=== PATIENT | female | born 1935 | race Caucasian/White ===

== ENCOUNTER 2019-06-23 16:30 | Outpatient (CLI) | payer MEDICARE, SELFPAY ==
--- NOTE | 2019-06-23 16:47 | XR_ITS ---
WS: [id number] XR chest 2V* [id number] REASON FOR EXAM: PNEUMONIA;LEFT RIB PAIN;ACCIDENTAL FALL FINDINGS: Small amount of right pleural effusion is noted. Fractures of the sixth and seventh, eighth There is mild compression deformities of the T7-T8 vertebra. Ribs at their angles on the left are seen. Mild amount of left pleural effusion evident. No pneumotho rax. The heart and mediastinum were normal there is arteriosclerotic changes seen. There was no definite pneumonia identified. The thoracic spine shows degenerated changes and mild compression deformities at the T7-8 level. XR/XR chest 2V* [id number] IMPRESSION: Fractured ribs 6 7 and eighth rib Mild compression changes T7-T8 vertebra. Mild pleural effusion obliterating the costophrenic angles bilaterally. Arteriosclerotic changes in the arch of the aorta.
--- NOTE | 2019-06-23 16:47 | XR_ITS ---
WS: [id number] XR ribs LT 2V* [id number] REASON FOR EXAM: LEFT RIB PAIN;ACCIDENTAL FALL FINDINGS: Fractures of the sixth, seventh, eighth ribs on their angles on the left. There was no pneumothorax is a small amount of left pleural effusion seen. XR/XR ribs LT 2V* [id number] IMPRESSION: Fractures of the sixth, seventh, eighth ribs at their angles on the left. A small amount of left pleural effusion.
== END 2019-06-23 16:31 | disposition home or self-care (01) ==
LOC: RAD 16:37
PROVIDERS: Family Provider Electrodiagnostic Medicine; Visit Provider Electrodiagnostic Medicine
DX: J18.9 Pneumonia, unspecified organism (principal); R07.81 Pleurodynia; J90 Pleural effusion, not elsewhere classified; S22.42XA Multiple fractures of ribs, left side, initial encounter for closed fracture; W19.XXXA Unspecified fall, initial encounter; I70.0 Atherosclerosis of aorta
CPT/HCPCS: 71046; 71100

== ENCOUNTER 2020-03-06 15:14 | Outpatient (CLI) | payer MEDICARE, SELFPAY ==
--- NOTE | 2020-03-06 15:49 | XR_ITS ---
WS: [id number] Exam: XR DEXA axial skeleton* [id number] Date/Time of Exam: 03/06/2020 3:54 PM Reason For Exam: OSTEOPOROSIS DEXA BONE DENSITOMETRY [employer] The L1-L4 bone mineral density measures 0.661 g/cm2. This corresponds to a T score of -4.3 and Z scor e of -1.9. Left femoral neck bone mineral density measures 0.521 g/cm2. This corresponds to T score of -3.9 and Z score of -1.3. Right femoral neck bone mineral density measures 0.566 g/cm2. This corresponds to a T score of -3.5 a nd Z score of -0.9. Mean femoral neck bone mineral density measures 0.544 g/cm2. This corresponds to a T score of -3.7 an d Z score of -1.1 XR/XR DEXA axial skeleton* [id number] IMPRESSION: Bone mineral density lies in the osteoporotic range. Refer to detailed summary .
== END 2020-03-06 15:15 | disposition home or self-care (01) ==
LOC: RADWPI 15:19
PROVIDERS: PCP Electrodiagnostic Medicine; Visit Provider Electrodiagnostic Medicine
DX: M81.0 Age-related osteoporosis without current pathological fracture (principal)
CPT/HCPCS: 77080

== ENCOUNTER 2020-03-12 10:26 | Outpatient (CLI) | payer MEDICARE, SELFPAY ==
[2020-03-12 11:11] LABS: Basophils # 0.1 10^3/uL (0.0-0.1); Eosinophils # 0.1 10^3/uL (0.0-0.8); Eosinophils % 1.3 %; Hematocrit 39.5 % (37.0-47.0); Hemoglobin 12.8 g/dL (11.5-15.3); Lymphocytes # 1.8 10^3/uL (0.8-4.8); Lymphocytes % 30.1 %; Mean Corpuscular HGB Conc 32.4 g/dL (30.0-36.0); Mean Corpuscular Hemoglobin 33.1 pg (28.0-34.0); Mean Corpuscular Volume 102.1 fL (81-99); Mean Platelet Volume 9.5 fL (7.4-10.4); Monocytes # 0.5 10^3/uL (0.2-0.9); Neutrophils # 3.58 10^3/uL (1.8-7.7); Neutrophils % 59.4 %; Nucleated Red Blood Cells % 0 %; Platelet Count 241 10^3/cmm (130-400); Red Blood Count 3.87 10^6/uL (4.1-5.3); Red Cell Distribution Width 13.4 % (12.1-15.1)
[2020-03-12 11:17] LABS: Alanine Aminotransferase 13 U/L (0-33); Albumin Level 4.3 g/dL (3.5-5.2); Alkaline Phosphatase 64 IU/L (35-105); Anion Gap 13.5 (5-19); Aspartate Amino Transferase 23 U/L (0-32); Blood Urea Nitrogen 12 mg/dL (8-23); Calcium 9.2 mg/dL (8.5-10.5); Carbon Dioxide 28 mmol/L (22-29); Chloride 100 mmol/L (98-107); Globulin 2.3 g/dL (1.3-4.6); Glucose 91 mg/dL (65-115); Osmolality Calculated 283 mOsm/kg (285-295); Potassium 4.5 mmol/L (3.5-5.1); Sodium 137 mmol/L (136-145); Total Bilirubin 0.3 mg/dL (0.15-1.2); Total Protein 6.6 g/dL (6.6-8.7)
--- NOTE | 2020-03-12 11:21 | ECG_ITS ---
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 Measurements Intervals [place] Rate: 78 P: 67 IN: 162 QRS: -29 QRSD: 83 T: 72 QT: 306 QTc: 350 Interpretive Statements SINUS RHYTHM SEPTAL MYOCARDIAL INFARCTION [40+ ms Q WAVE IN V1/V2], PROBABLY OLD No previous ECG available for comparison Electronically Signed On 03-12-2020 16:43:09 DIRECT MARKETING COORDINATOR by Colton Curiel M.D. [email or web address]
== END 2020-03-12 10:27 | disposition home or self-care (01) ==
LOC: LAB 10:31
PROVIDERS: PCP Electrodiagnostic Medicine; Visit Provider Specialist
DX: Z01.818 Encounter for other preprocedural examination (principal)
CPT/HCPCS: 36415; 80053; 85025; 93005

== ENCOUNTER 2020-06-13 11:02 | Outpatient (CLI) | payer MEDICARE, SELFPAY | END 2020-06-13 11:03 | disposition home or self-care (01) | LOC: LAB 11:04 | PROVIDERS: PCP Electrodiagnostic Medicine; Visit Provider Specialist | DX: C30.0 Malignant neoplasm of nasal cavity (principal) | CPT/HCPCS: 88304 ==

== ENCOUNTER 2020-08-10 20:41 | Emergency (ER) | payer MEDICARE, SELFPAY ==
[2020-08-10 20:54] VITALS: BP 156/68; PULSE 97; RESP 16; TEMP 37.2; O2SAT 96; BMI 20.1
--- NOTE | 2020-08-10 21:26 | XRR_ITS ---
PROCEDURE INFORMATION: Exam: XR Chest Exam date and time: 08/10/2020 9:30 PM Age: 85 years old Clinical indication: Cough and shortness of breath; Patient HX: Cough with SOB. ; Additional info: Cough/sob TECHNIQUE: Imaging protocol: XR of the chest. Views: 1 view. COMPARISON: CR XR chest 2V* [id number] 06/23/2019 4:53 PM FINDINGS: Lungs: The lungs are hyperinflated with unchanged diffuse interstitial prominence compatible with COPD with fibrosis. There is unchanged linear scarring in the right lower lobe. There is new/increased hazy density in the left lower lobe concerning for early pneumonic infiltrate. Pulmonary vascularity is within normal limits. Pleural spaces: Unremarkable. No pleural effusion. No pneumothorax. Heart/Mediastinum: Unremarkable. No cardiomegaly. Bones/joints: Old left rib fracture deformities are noted. Osteopenia and moderate to severe degenerative changes in the spine are noted. XR/XR chest 1V portable [id number] IMPRESSION: There is new/increased hazy density in the left lower lobe concerning for early pneumonic infiltrate. 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
[2020-08-10 22:01] VITALS: BP 165/85; PULSE 96; RESP 18; O2SAT 93
--- NOTE | 2020-08-10 22:13 | W.ED.SOB ---
HPI - SOB/Dyspnea General: Chief Complaint: Upper Respiratory Infection Stated Complaint: cough/sob Time Seen by Provider: 08/10/20 22:01 Source: patient Mode of arrival: ambulatory Limitations: no limitations History of Present Illness: HPI Narrative: Patient is a nice 85-year-old female who presents to ED today with a complaint of a cough and intermittent shortness of breath over the past 2 days. Patient tells me she only has shortness of breath while coughing. She has not noticed any exercise intolerance. She does not complain of chest pain. No fevers. Patient is otherwise healthy. She takes one medication for osteoporosis. She states she has received the [employer] COVID vaccination. No sick contacts. She is an everyday smoker. MD elicited complaint: shortness of breath and cough Onset (ago): day(s) Timing: intermittent Severity: moderate Exacerbating factors: other (coughing) Relieving factors: nothing Associated symptoms: Reports chest congestion; Deny abdominal pain, chest pain, fever(s), hemoptysis, lightheadedness, nausea, orthopnea, palpitations, syncope or vomiting Treatment prior to arrival: none Related Data: Home oxygen amount: none Review of Systems Const: Denies: fever(s), chills, body aches, fatigue or malaise ENMT: Denies: throat pain, odynophagia or nasal congestion Card: Denies: chest pain, palpitations, irregular heart rhythm, edema, swelling of feet/ankles, lightheadedness, syncope, pre-syncope or orthopnea Resp: Reports: dyspnea, productive cough and chest congestion; Denies: wheezing, stridor, pain on inspiration, change in phlegm color or hemoptysis GI: Denies: abdominal pain, nausea, vomiting or diarrhea Musc: Denies: neck pain or back pain Skin/Breast: Denies: rash Neuro: Denies: headache(s) PFSH ED PFSH: Family History Brother Cancer Father Diabetes Sister Diabetes Social History Smoking and tobacco status: current some day smoker Physical Exam Const: COMMON NORMALS: no acute distress, average body habitus, patient oriented x3, no limitations, healthy appearing, alert and well nourished GENERAL APPEARANCE: cooperative ORIENTATION/CONSCIOUSNESS: Yes awake, Yes oriented to person, Yes oriented to place and Yes oriented to time HENMT: COMMON NORMALS: normocephalic, atraumatic, hearing grossly normal bilaterally, external ears normal, EAC's normal, TM's normal bilaterally, Normal external nose present, Normal nasal mucous membranes and turbinates present, moist oral mucous membranes, oropharynx normal, dentition normal and gingiva normal HEAD & SCALP: normal to inspection, normocephalic and atraumatic FACE & SINUS: normal facial exam and sinuses nontender NOSE: Normal external nose present and Normal nasal mucous membranes and turbinates present EXTERNAL EAR: Yes external ears normal EXTERNAL AUDITORY CANAL: EAC's normal TYMPANIC MEMBRANE: TM's normal bilaterally Neck/C-Spine: COMMON NORMALS: full ROM, no lymphadenopathy and no meningeal signs Chest: COMMONS NORMALS: normal inspection of the chest and normal palpation of entire chest wall Resp: COMMON NORMALS: normal respiratory effort and clear to auscultation bilaterally EFFORT & INSPECTION: Yes able to speak in complete sentences AUSCULTATION: clear to auscultation bilaterally OTHER: course sounding cough Cardio: COMMON NORMALS: regular rate and regular rhythm RATE: regular rate RHYTHM: regular rhythm Extremity: COMMON NORMALS: capillary refill normal, no clubbing, cyanosis or edema, no calf tenderness and no pedal edema Neuro: COMMON NORMALS: patient oriented x3 SENSORIUM/ORIENTATION: Yes alert, Yes oriented to person, Yes oriented to place and Yes oriented to time MENINGEAL SIGNS: Yes no meningeal signs Skin: COMMON NORMALS: no rashes or lesions noted GENERAL SKIN EXAM: no rashes or lesions noted Course Vital Signs: Vital signs: Vital Signs Temperature 99.0 F 08/10/20 20:54 Pulse Rate 98 08/10/20 23:14 Respiratory Rate 19 H 08/10/20 22:33 Blood Pressure 139/75 08/10/20 23:14 Pulse Oximetry 100 08/10/20 23:14 MDM - SOB/Dyspnea MDM Narrative: Medical decision making narrative: Patient has a developing left lower lobe pneumonia. She is not tachycardic or febrile. Her white count is 10.4. She is a normal procalcitonin. COVID is negative. She will be covered with Azithromycin and Augmentin for outpatient treatment of her CAP. Strict return to ED precautions given. Otherwise she was instructed to follow-up with her primary care provider. She was given first doses of meds here prior to discharge. Lab Data: Labs: Lab Results 08/10/20 08/10/20 08/10/20 Range/Units 22:08 22:08 22:30 WBC 10.4 H (4.0-10.0) 10^3/ uL RBC 3.46 L (4.1-5.3) 10^6/u L Hgb 11.6 (11.5-15.3) g/dL Hct 34.5 L (37.0-47.0) % MCV 99.7 H (81-99) fL MCH 33.5 (28.0-34.0) pg MCHC 33.6 (30.0-36.0) g/dL RDW 13.7 (12.1-15.1) % Plt Count 242 (130-400) 10^3/c mm MPV 9.4 (7.4-10.4) fL Neut % (Auto) 71.0 % Lymph % (Auto) 17.1 % Harvey % (Auto) 9.1 % Eos % (Auto) 1.8 % Baso % (Auto) 0.7 % Neut # (Auto) 7.38 (1.8-7.7) 10^3/u L Lymph # (Auto) 1.8 (0.8-4.8) 10^3/u L Harvey # (Auto) 1.0 H (0.2-0.9) 10^3/u L Eos # (Auto) 0.2 (0.0-0.8) 10^3/u L Baso # (Auto) 0.1 (0.0-0.1) 10^3/u L Nucleated RBC % (a uto) 0 % Nucleated RBCs # 0.0 /100WBC Sodium 133 L (136-145) mmol/L Potassium 4.2 (3.5-5.1) mmol/L Chloride 96 L (98-107) mmol/L Carbon Dioxide 27 (22-29) mmol/L Anion Gap 14.2 (5-19) BUN 11 (8-23) mg/dL Creatinine 0.7 (0.5-0.9) mg/dL GFR Calculation Not Reportable Glucose 104 (65-115) mg/dL Calculated Osmolal ity 276 L (285-295) mOsm/k g Calcium 8.6 (8.5-10.5) mg/dL Total Bilirubin 0.5 (0.15-1.2) mg/dL AST 30 (0-32) U/L ALT 21 (0-33) U/L Alkaline Phosphata se 69 (35-105) IU/L Total Protein 6.6 (6.6-8.7) g/dL Albumin 4.0 (3.5-5.2) g/dL Globulin 2.6 (1.3-4.6) g/dL Procalcitonin 0.04 (0-0.5) ng/mL SARS-CoV-2 Ag (Rap id) Negative (Negative) Imaging Data^: CXR: Radiologist's impression: [id number] [address] XRay Report Signed Patient: Arlin Carrillo #: [id number] : 6At#:[id number] Age/Sex: 85 / FADM Date: 08/10/20 Loc: ERRoom/Bed: Attending Dr: Ordering Provider/Ordering MD: Ambika Edwards Date of Service: 08/10/20 Procedure(s): XR chest 1V portable [id number] Accession Number(s): [id number] Report Number: [id number] PROCEDURE INFORMATION: Exam: XR Chest Exam date and time: 08/10/2020 9:30 PM Age: 85 years old Clinical indication: Cough and shortness of breath; Patient HX: Cough with SOB. ; Additional info: Cough/sob TECHNIQUE: Imaging protocol: XR of the chest. Views: 1 view. COMPARISON: CR XR chest 2V* [id number] 06/23/2019 4:53 PM FINDINGS: Lungs: The lungs are hyperinflated with unchanged diffuse interstitial prominence compatible with COPD with fibrosis. There is unchanged linear scarring in the right lower lobe. There is new/increased hazy density in the left lower lobe concerning for early pneumonic infiltrate. Pulmonary vascularity is within normal limits. Pleural spaces: Unremarkable. No pleural effusion. No pneumothorax. Heart/Mediastinum: Unremarkable. No cardiomegaly. Bones/joints: Old left rib fracture deformities are noted. Osteopenia and moderate to severe degenerative changes in the spine are noted. XR/XR chest 1V portable [id number] IMPRESSION: There is new/increased hazy density in the left lower lobe concerning for early pneumonic infiltrate. 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 Dictated By:Ashley Chicas Signed By:Katina Chicas Date/Time:08/10/202199 DD/ 57 Discharge Plan Discharge Patient Disposition: Home Clinical Impression: Left lower lobe pneumonia Qualifiers: Pneumonia type: due to unspecified organism Qualified Code(s): J18.9 - Pneumonia, unspecified organism Condition: Stable Prescriptions: New Augmentin 875-125 mg tablet 1 tab PO Q12H 7 Days Qty: 14 RF: 0 azithromycin 500 mg tablet See Rx Instructions PO .COMPLEX Qty: 3 RF: 0 No Action cholecalciferol (vitamin D3) 1,250 mcg (50,000 unit) capsule PO RF: 0 alendronate 70 mg tablet PO RF: 0 Discharge Orders: Discharge ED (Routine); Ordered 08/10/20 Ordered By: Ambika Edwards Referrals: Alejandro Roman DO [Primary Care Provider] - Patient Instructions: Pneumonia (ED) Activity Restrictions/Additional Instructions: Please fill your antibiotics and start taking immediately. Return to the emergency department for worsening shortness of breath, cough, difficulty breathing, fevers, inability to hold down your medications, or any other concerns you may have. I hope you begin to feel better soon. Coding Level of Care Code ED Snow Plow Operator for Brooke Fwtereza Exam Comprehensive
[2020-08-10 22:14] LABS: Basophils # 0.1 10^3/uL (0.0-0.1); Basophils % 0.7 %; Eosinophils # 0.2 10^3/uL (0.0-0.8); Eosinophils % 1.8 %; Hematocrit 34.5 % (37.0-47.0); Hemoglobin 11.6 g/dL (11.5-15.3); Lymphocytes # 1.8 10^3/uL (0.8-4.8); Lymphocytes % 17.1 %; Mean Corpuscular HGB Conc 33.6 g/dL (30.0-36.0); Mean Corpuscular Hemoglobin 33.5 pg (28.0-34.0); Mean Corpuscular Volume 99.7 fL (81-99); Mean Platelet Volume 9.4 fL (7.4-10.4); Monocytes % 9.1 %; Neutrophils # 7.38 10^3/uL (1.8-7.7); Nucleated Red Blood Cells % 0 %; Platelet Count 242 10^3/cmm (130-400); Red Blood Count 3.46 10^6/uL (4.1-5.3); Red Cell Distribution Width 13.7 % (12.1-15.1); White Blood Count 10.4 10^3/uL (4.0-10.0)
[2020-08-10 22:33] VITALS: BP 146/71; PULSE 87; RESP 19; O2SAT 94
[2020-08-10 22:39] LABS: Procalcitonin 0.04 ng/mL (0-0.5)
[2020-08-10 22:50] LABS: Alanine Aminotransferase 21 U/L (0-33); Alkaline Phosphatase 69 IU/L (35-105); Anion Gap 14.2 (5-19); Aspartate Amino Transferase 30 U/L (0-32); Blood Urea Nitrogen 11 mg/dL (8-23); Calcium 8.6 mg/dL (8.5-10.5); Carbon Dioxide 27 mmol/L (22-29); Chloride 96 mmol/L (98-107); Creatinine Clr Calc Pharmacy 41.3343; Globulin 2.6 g/dL (1.3-4.6); Glucose 104 mg/dL (65-115); Osmolality Calculated 276 mOsm/kg (285-295); Potassium 4.2 mmol/L (3.5-5.1); Sodium 133 mmol/L (136-145); Total Bilirubin 0.5 mg/dL (0.15-1.2); Total Protein 6.6 g/dL (6.6-8.7)
[2020-08-10 22:55] LABS: SARS Covid-2 Antigen Negative (Negative)
[2020-08-10] MEDS: amoxicillin-clav 875-125 mg Tablet 1 TAB PO (23:12)
[2020-08-10] MEDS: azithromycin 250 mg Tablet 500 MG PO (23:12)
[2020-08-10 23:14] VITALS: BP 139/75; PULSE 98; O2SAT 100
== END 2020-08-10 23:16 | disposition home or self-care (01) ==
PROVIDERS: Emergency Provider Physician Assistant; PCP Electrodiagnostic Medicine
DX: J18.9 Pneumonia, unspecified organism (principal); F17.210 Nicotine dependence, cigarettes, uncomplicated
CPT/HCPCS: 71045; 80053; 84145; 85025; 87426; 99283; Q0144

== ENCOUNTER 2023-06-29 10:51 | Outpatient (CLI) | payer MEDICARE, SELFPAY ==
--- NOTE | 2023-06-29 10:55 | XR_ITS ---
WS: [id number] SCREENING DEXA SCAN [employer] CLINICAL INFORMATION: OSTEOPOROSIS COMPARISON: 2019 FINDINGS: The L1-L4 bone mineral density measures 0.685 g/cm2. This corresponds to a T score score of -4.1 and Z score of -1.7. Left femoral neck bone mineral density measures 0.556 g/cm2. This corresponds to a T score of -3.6 an d Z score of -0.8. Right femoral neck bone mineral density measures 0.518 g/cm2. This corresponds to a T score -3.9of an d Z score of -1.1. Mean femoral neck bone mineral density measures 0.537 g/cm2. This corresponds to a T score of -3.7 an d Z score of -1.0. IMPRESSION: Osteoporosis lumbar spine. Osteoporosis femoral necks. Patient's FRAX calculated 10 year probability for major osteoporotic fracture is 67.1% and osteoporot ic hip fracture is 62.3%. Bone mineral density lumbar spine increased 3.6% Bone mineral density femoral necks decreased -1.3%
== END 2023-06-29 10:52 | disposition home or self-care (01) ==
LOC: RAD 10:52
PROVIDERS: PCP Electrodiagnostic Medicine; Visit Provider Electrodiagnostic Medicine
DX: Z13.820 Encounter for screening for osteoporosis (principal); M81.0 Age-related osteoporosis without current pathological fracture
CPT/HCPCS: 77080

== ENCOUNTER 2023-09-26 10:55 | Emergency (ER) | payer MEDICARE, SELFPAY ==
[2023-09-26 11:54] VITALS: BP 132/68; PULSE 68; RESP 16; TEMP 37.1; O2SAT 96
--- NOTE | 2023-09-26 12:37 | XRR_ITS ---
PROCEDURE INFORMATION: Exam: XR Lumbosacral Spine Exam date and time: 09/26/2023 12:56 PM Age: 88 years old Clinical indication: Lumbago; Patient HX: Bilateral hip/lower back pain post fall TECHNIQUE: Imaging protocol: Radiologic exam of the lumbosacral spine. Views: 2 or 3 views. COMPARISON: CR XR hip BI 2V wo/[place] [id number] 09/26/2023 12:56 PM FINDINGS: Bones/joints: Diffuse moderate to severe degenerative changes. Grade 1 degenerative anterolisthesis of L4 on L5. No acute fracture. Mild chronic appearing anterior wedging T12. Soft tissues: Unremarkable. XR/XR lumbar spine 2-3V* [id number] IMPRESSION: Chronic findings as above. No acute bony abnormality.
--- NOTE | 2023-09-26 12:37 | XRR_ITS ---
PROCEDURE INFORMATION: Exam: XR Bilateral Hips Exam date and time: 09/26/2023 12:56 PM Age: 88 years old Clinical indication: Hip pain; Patient HX: Bilateral hip/lower back pain post fall TECHNIQUE: Imaging protocol: Radiologic exam of the bilateral hips. Views: 2 views of hips with pelvis when performed. COMPARISON: CR (PELVIS, ) 09/26/2023 12:56 PM FINDINGS: Bones/joints: Symmetric mother 2 severe degenerative changes bilateral hips and sacroiliac joints. No acute fracture or dislocation. There is calcific tendinopathy bilateral greater trochanters. No evidence of avascular necrosis or collapse either femur. Soft tissues: Unremarkable. XR/XR hip BI 2V wo/w pel [id number] IMPRESSION: No acute abnormality.
--- NOTE | 2023-09-26 12:41 | W.ED.FALL ---
HPI - Fall General: Chief Complaint: Fall Stated Complaint: fell out of bed, back pain Time Seen by Provider: 09/26/23 12:34 History of Present Illness: Patient comes to the ER for low back pain and bilateral hip pain. Patient says this has been going on for about 2 days. Patient had a bad dream and fell out of bed. Patient does have chronic back pain but she said this is worse than normal. She said the pain is worse with movement. Patient states her family doctors had x-ray of her lumbar spine about a month ago and says she has significant arthritis. Review of Systems General: Reports: 10 or more systems reviewed and unremarkable except in HPI and below PFSH ED PFSH: Family History Brother Cancer Father Diabetes Sister Diabetes Social History Smoking and tobacco/nicotine status: current some day tobacco/nicotine user Physical Exam Const: COMMON NORMALS: no acute distress, average body habitus, patient oriented x3, no limitations, healthy appearing, alert and well nourished HENMT: COMMON NORMALS: normocephalic, atraumatic, hearing grossly normal bilaterally, external ears normal, Normal external nose present and moist oral mucous membranes HEAD & SCALP: normocephalic and atraumatic NOSE: Normal external nose present EXTERNAL EAR: Yes external ears normal Eye: COMMON NORMALS: Equal, round and reactive pupils present, EOMs intact bilaterally and conjunctivae normal CONJUNCTIVA: Yes conjunctivae normal PUPIL: Yes Equal, round and reactive pupils present Neck/C-Spine: COMMON NORMALS: full ROM, no lymphadenopathy, supple, no meningeal signs and no JVD Chest: COMMONS NORMALS: normal inspection of the chest and normal palpation of entire chest wall Resp: COMMON NORMALS: normal respiratory effort, No retractions, No use of accessory muscles and clear to auscultation bilaterally AUSCULTATION: clear to auscultation bilaterally Cardio: COMMON NORMALS: no JVD, regular rate, regular rhythm, S1 normal heart sound present, S2 normal heart sound present, No gallops present (Cardio), No clicks present (Cardio) and No murmurs present (Cardio) RATE: regular rate RHYTHM: regular rhythm HEART SOUNDS: S1 normal heart sound present and S2 normal heart sound present GI: COMMON NORMALS: Normal to inspection, nondistended, normoactive bowel sounds present, Soft to palpation, non-tender, No hepatosplenomegaly present and no masses PALPATION: Yes Soft to palpation and Yes No hepatosplenomegaly present Back/Pelvis: OTHER: Mild tenderness to palpation over lumbar paraspinal musculature. No overt tenderness over spinal processes, crepitus, deformity, mild tenderness to palpation over bilateral hip area. Neuro: COMMON NORMALS: patient oriented x3 SENSORIUM/ORIENTATION: Yes alert MENINGEAL SIGNS: Yes no meningeal signs Course Vital Signs: Vital signs: Vital Signs Temperature 98.7 F 09/26/23 11:54 Pulse Rate 68 09/26/23 11:54 Respiratory Rate 16 09/26/23 11:54 Blood Pressure 132/68 09/26/23 11:54 Pulse Oximetry 96 09/26/23 11:54 MDM - Fall Medical Decision Making Patient fell down and is having worsening low back and hip pain. Hip pelvis and lumbar spine x-rays were obtained which showed no acute findings. Patient be discharged on tramadol and instructed to follow-up with her PCP within next 7 days. Differential Diagnosis Unlikely syncope, dislocation of shoulder region, fracture of wrist, compression fracture, concussion with loss of consciousness or concussion without loss of consciousness Medical Records I reviewed the patient's medical records. Lab Data I reviewed the patient's lab results. Radiology Impressions Hip/Pelvis X-Ray 09/26/23 12:37 IMPRESSION: No acute abnormality. Lumbar Spine X-Ray 09/26/23 12:37 IMPRESSION: Chronic findings as above. No acute bony abnormality. No radiology studies performed this visit Discharge Plan Discharge Patient Disposition: Home Clinical Impression: Fall, Acute lumbar back pain Condition: Stable Prescriptions: New tramadol 50 mg tablet 50 mg PO Q8H PRN (Reason: pain) Qty: 14 0RF No Action cholecalciferol (vitamin D3) 1,250 mcg (50,000 unit) capsule PO alendronate 70 mg tablet PO azithromycin 500 mg tablet See Rx Instructions PO .COMPLEX Qty: 3 0RF Rx Instructions: take 500 mg today (day 1), then 250 mg for 4 days (days 2-5) Discharge Orders: Discharge ED (Routine); Ordered 09/26/23 Ordered By: Lester Hood Referrals: Alejandro Roman DO [Primary Care Provider] - 1 week Patient Instructions: Pain Management Activity Restrictions/Additional Instructions: Please take your pain medicine as prescribed as needed. Please follow-up with your family practice physician within next 7 days for further evaluation and treatment. Your x-rays of your hips, pelvis, and low back showed no acute abnormalities. Coding Level of Care Code ED Service Station Cashier for Brooke Patino
[2023-09-26 14:41] VITALS: BP 128/72; PULSE 64; RESP 16; TEMP 37.1; O2SAT 98
== END 2023-09-26 14:42 | disposition home or self-care (01) ==
PROVIDERS: Emergency Provider Emergency Medicine; PCP Electrodiagnostic Medicine
DX: M54.50 Low back pain, unspecified (principal); Z72.0 Tobacco use
CPT/HCPCS: 72100; 73521; 99283

== ENCOUNTER 2024-07-02 13:06 | Emergency (ER) | payer MEDICARE, SELFPAY ==
[2024-07-02 13:08] VITALS: BP 161/72; PULSE 78; RESP 18; TEMP 36.6; O2SAT 96
--- NOTE | 2024-07-02 13:16 | XRR_ITS ---
PROCEDURE INFORMATION: Exam: XR Right Hip Exam date and time: 07/02/2024 1:37 PM Age: 89 years old Clinical indication: Hip pain; Right hip/pelvic pain post fall TECHNIQUE: Imaging protocol: Radiologic exam of the right hip. Views: 1 view hip with pelvis when performed. COMPARISON: CR XR hip BI 2V wo/w pel [id number] 09/26/2023 12:56 PM FINDINGS: Bones/joints: Minimally displaced fracture right superior pubic ramus with possible nondisplaced fracture right inferior pubic ramus. Bilateral hip DJD. Soft tissues: Unremarkable. XR/XR hip RT 2-3V wo/w pel* [id number] IMPRESSION: Minimally displaced fracture right superior pubic ramus with possible nondisplaced fracture right inferior pubic ramus.
--- NOTE | 2024-07-02 13:23 | ED_ITS ---
Documented by User: Francia Frye MD 07/02/24 15:36 HPI - Fall 2 General: Chief Complaint: Fall Stated Complaint: fell, pain in rt leg Time Seen by Provider: 07/02/24 13:12 History of Present Illness: 89-year-old female who presents emergenc y room after having a fall and having some right hip pain. She has some shortening but no rotation. She says she has balance issues and just lost her balance and fell. No syncope. No altered mental status. No fevers. No chest pain. No abdominal pain. No other injuries. No head injury. She is not on any anticoagulation. Related Data Home Medications ?Medication ?Instructions ?Recorded ?Confirmed acetaminophen 325 mg capsule 650 mg PO QID PRN Fever O r Pain 11/09/23 07/02/24 ibuprofen 200 mg tablet (Advil) 400 mg PO Q6H PRN Feve r Or Pain 07/02/24 07/02/24 Previous Rx's ?Medication ?Instructions ?Recorded DME: Walker #1 ea 07/02/24 hydrocodone 5 mg-acetaminophen 325 1 tab PO Q8H PRN pa in #20 tabs 07/02/24 mg tablet polyethylene glycol 3350 17 17 g PO DAILY #510 grams 0 07/02/24 gram/dose oral powder (Miralax) Allergies Allergy/AdvReac Type Severity Reaction Status Date / Time No Known Allergies Allergy Verified 07/02/24 13:08 Review of Systems 2 Narrative: Constitutional symptoms: Negative except as documented in HPI. Skin symptoms: Negative except as documented in HPI. Eye symptoms: Negative except as documented in HPI. ENMT symptoms: Negative except as documented in HPI. Respiratory symptoms: Negative except as documented in HPI. Cardiovascular symptoms: Negative except as documented in HPI. Gastrointestinal symptoms: Negative except as documented in HPI. Genitourinary symptoms: Negative except as documented in HPI. Musculoskeletal symptoms: Negative except as documented in HPI. Neurologic symptoms: Negative except as documented in HPI. Psychiatric symptoms: Negative except as documented in HPI. Endocrine symptoms: Negative except as documented in HPI. PFSH ED 2 PFSH: Family History (Updated 11/09/23 @ 13:33 by Natalia Ho LPN) Brother No problems noted. Father Diabetes Heart disease Sister Diabetes Heart disease Mother Hypertension Denies family history of Colon cancer Ovarian cancer Prostate cancer Breast cancer Uterine cancer Thyroid disease Stroke Physical Exam 2 Narrative: EXAM NARRATIVE: General: Alert, no acute distress. Skin: Warm, dry. Head: Normocephalic, atraumatic. Neck: Supple, trachea midline. Eye: Extraocular movements are intact. Ears, nose, mouth and throat: mucosa moist. Cardiovascular: Regular, Normal peripheral perfusion. Respiratory: Lungs are clear to auscultation, respirations are non-labored, breath sounds are equal, Symmetrical chest wall expansion. Gastrointestinal: Soft, Nontender, Non distended Musculoskeletal: Some shortening without rotation of the right leg. Neurovascularly intact. Pain in the groin and hip area with any movement of the leg. Neurological: Alert and oriented, No focal neurological deficit observed. Psychiatric: Cooperative, appropriate mood & affect. Course 2 Vital Signs: Vital signs: Vital Signs Temperature 98 F 07/02/24 13:08 Pulse Rate 71 07/02/24 16:02 Respiratory Rate 16 07/02/24 13:51 Blood Pressure 144/71 07/02/24 16:02 Pulse Oximetry 95 07/02/24 16:02 Oxygen Delivery Me thod Room Air 07/02/24 15:14 MDM - Fall Medical Decision Making Medical decision making: Differential diagnosis for patient with fall and hip pain with deformity including but not limited to and based on the above HPI, review of systems and physical exam: Hip fracture, femur fracture, pelvic fractures including pubic rami and acetabular fractures, hip strain, hip contusion. - Workup: - Hip films ordered to evaluate above. - also presurgical work up done. EKG, Chest xray and lab work X-ray of the right hip and pelvis: Superior ramus fracture with possible inferior pubic ramus fracture. A CT was ordered to further evaluate. Chest x-ray: No acute process. No infiltrate. No pneumothorax. This was reviewed and interpreted by myself the emergency room physician. I also reviewed the radiology report. Lab Review: Laboratory results were reviewed and interpreted by myself the emergency room physician. Lab work is unremarkable. No leukocytosis. No anemia. No renal failure. CT of the pelvis without contrast: Right-sided inferior and superior pubic ramus fractures. Nondisplaced right sacral ala fractures. This was reviewed and interpreted by myself the emergency room physician. I also reviewed the radiology report. Consultation: I spoke with Dr. Rubio who is on-call for orthopedics. He recommends nonweightbearing as tolerated. This is nonsurgical. Patient can see him in clinic. I reviewed the patient's medical record. Reexamination: Patient remained stable. No increased work of breathing. No altered mental status. No focal motor deficits. Patient says she did bear some weight on the hip after she injured it. I discussed at length with the patient and with her son options at this time. Ultimately they feel like going for rehab at this point is not preferable. They want to try to go home. I have ordered a walker and a bedside commode for them. Discussed following with Ortho and following with her primary care provider. Primary provider may be able to provide them with physical therapy etc. I discussed pain control. Also discussed making sure she takes MiraLAX any other stool softener she needs to keep her bowels moving if she is on any pain meds. Assessment and plan: Pelvic fracture ?Ida in the emergency room. DME for walker and bedside commode. - Discharged home - Discussed plan with patient. Answered any questions. - Evaluation and treatment of this problem were appropriate in the emergency setting. Lab Data 07/02/24 13:57 07/02/24 13:57 Radiology Impressions Hip/Pelvis X-Ray 07/02/24 13:16 IMPRESSION: Minimally displaced fracture right superior pubic ramus with possible nondisplaced fracture right inferior pubic ramus. Chest X-Ray 07/02/24 13:24 IMPRESSION: Hazy left basilar infiltrate. Pelvis CT 07/02/24 13:58 IMPRESSION: 1. Right-sided inferior and superior pubic rami fractures. 2. Nondisplaced right sacral ala fractures. 3. This combination of fractures constitutes a Malgaigne fracture. Laboratory Results WBC 6.24 10^3/uL (3.29-11.43) 07/02/24 13:57 RBC 3.79 10^6/uL (3.85-5.65) L 07/02/24 13:57 Hgb 12.50 g/dL (11.27-16.99) 07/02/24 13:57 Hct 37.7 % (36-47) 07/02/24 13:57 MCV 99.5 fl (85-98) H 07/02/24 13:57 MCH 33.0 pg (27-33) 07/02/24 13:57 MCHC 33.2 g/dL (30-55) 07/02/24 13:57 RDW 13.3 % (12.1-15.1) 07/02/24 13:57 Plt Count 213 10^3/cmm (157-399) 07/02/24 13:57 MPV 8.9 fL (7.4-10.4) 07/02/24 13:57 Neut % (Auto) 76.9 % 07/02/24 13:57 Lymph % (Auto) 15.7 % 07/02/24 13:57 [place]haw % (Auto) 5.9 % 07/02/24 13:57 Eos % (Auto) 0.2 % 07/02/24 13:57 Baso % (Auto) 0.8 % 07/02/24 13:57 Neut # (Auto) 4.80 10^3/uL (1.8-7.7) 07/02/24 13:57 Lymph # (Auto) 1.0 10^3/uL (0.8-4.8) 07/02/24 13:57 [place] # (Auto) 0.4 10^3/uL (0.2-0.9) 07/02/24 13:57 Eos # (Auto) 0.0 10^3/uL (0.0-0.8) 07/02/24 13:57 Baso # (Auto) 0.1 10^3/uL (0.0-0.1) 07/02/24 13:57 Nucleated RBC % (auto) 0 % 07/02/24 13:57 Nucleated RBCs # 0.0 /100WBC 07/02/24 13:57 PT 13.70 SECONDS (12.1-14.9) 07/02/24 13:57 INR 0.98 (0.8-1.2) 07/02/24 13:57 Sodium 134 mmol/L (136-145) L 07/02/24 13:57 Potassium 4.4 mmol/L (3.5-5.1) 07/02/24 13:57 Chloride 100 mmol/L (98-107) 07/02/24 13:57 Carbon Dioxide 26 mmol/L (22-29) 07/02/24 13:57 Anion Gap 12.4 (5-19) 07/02/24 13:57 BUN 14 mg/dL (8-23) 07/02/24 13:57 Creatinine 0.6 mg/dL (0.5-0.9) 07/02/24 13:57 GFR Calculation Not Reportable 07/02/24 13:57 Glucose 90 mg/dL (65-115) 07/02/24 13:57 Calculated Osmolality 278 mOsm/kg (285-295) L 07/02/24 13:57 Calcium 9.1 mg/dL (8.5-10.5) 07/02/24 13:57 Total Bilirubin 0.4 mg/dL (0.15-1.2) 07/02/24 13:57 AST 28 U/L (0-32) 07/02/24 13:57 ALT 15 U/L (0-33) 07/02/24 13:57 Alkaline Phosphatase 63 U/L (35-105) 07/02/24 13:57 Total Protein 6.6 g/dL (6.6-8.7) 07/02/24 13:57 Albumin 3.9 g/dL (3.5-5.2) 07/02/24 13:57 Globulin 2.7 g/dL (1.3-4.6) 07/02/24 13:57 All radiology interpretation(s) finalized by discharge Discharge Plan Discharge Patient Disposition: Home Clinical Impression: Closed Malgaigne fracture of pelvis, Fall Condition: Stable Prescriptions: New hydrocodone-acetaminophen 5-325 mg tablet 1 tab PO Q8H PRN (Reason: pain) Qty: 20 0RF Rx Instructions: Take 1/2 to 1 tab every 8 hours as needed for pain polyethylene glycol 3350 [Miralax] 17 gram/dose powder 17 g PO DAILY Qty: 510 0RF Rx Instructions: Take 1 scoop daily while taking pain medications. (DME) DME: Walker Unit See Rx Instructions .Route Qty: 1 0RF Rx Instructions: As directed No Action acetaminophen 325 mg capsule 650 mg PO QID PRN (Reason: Fever Or Pain) ibuprofen [Advil] 200 mg Tablet 400 mg PO Q6H PRN (Reason: Fever Or Pain) Discharge Orders: Discharge ED (Routine); Ordered 07/02/24 Ordered By: Francia Frye Other Ambulatory Orders: DME: [facility] (Order) Location: None Selected Ordered By: Francia Frye Referrals: Amari Rubio DO [Physician] - (Please call for a follow-up ointment with Dr. Rubio with orthopedics.) Alejandro Roman DO [Primary Care Provider] - Discharge Activity: Limit activity as instructed Patient Instructions: Opioid Safety, Pain Management Activity Restrictions/Additional Instructions: You are able to weight-bear as tolerated. You can touchdown or bear weight fully if pain allows. You may need to use a walker or wheelchair initially. Please contact your PCP as soon as possible for possible home health, physical therapy or other aids. Thank you for choosing [facility] for your healthcare needs today. Please realize this is an emergency room and that we are providing you with a medical screening exam and this may not be complete and all inclusive of all the testing and or work up that you may need to determine your ailment or severity of your illness. You have been screened and evaluated and felt safe for discharge. Health conditions do change or evolve sometimes and as such it is important that you follow up with your Primary Doctor to be re checked, 3-5 days is a general good time frame for follow up. You are always welcome to return to the ED for re assessment if your symptoms are worsening or you have new concerns Print Language: Greenlandic Coding Level of Care Code ED Inspector Tester Sorter for Chg Fwd Documented by User: NORMA Vega 07/03/24 00:50 HPI - Fall 2 General: Chief Complaint: Fall Stated Complaint: fell, pain in rt leg Time Seen by Provider: 07/02/24 13:12 History of Present Illness: Patient is a 89-year-old female that presents to the emergency department with right hip pain. Patient reports that she had a slip and fall while watering her dogs. She states she fell onto her right hip. She denies striking her head or loss of consciousness. She has some low back pain but primarily pain is located to the right groin. She does have some shortening of the right lower extremity but no rotation. Patient is not anticoagulated. She reports that she has no chronic medical conditions for which she is treated. She did have a prior skin lesion removed from her face. She reports that she had some heart trouble years ago but nothing ever came of it. Related Data Home Medications ?Medication ?Instructions ?Recorded ?Confirmed acetaminophen 325 mg capsule 650 mg PO QID PRN Fever O r Pain 11/09/23 07/02/24 ibuprofen 200 mg tablet (Advil) 400 mg PO Q6H PRN Feve r Or Pain 07/02/24 07/02/24 Previous Rx's ?Medication ?Instructions ?Recorded DME: Walker #1 ea 07/02/24 hydrocodone 5 mg-acetaminophen 325 1 tab PO Q8H PRN pa in #20 tabs 07/02/24 mg tablet polyethylene glycol 3350 17 17 g PO DAILY #510 grams 0 07/02/24 gram/dose oral powder (Miralax) Allergies Allergy/AdvReac Type Severity Reaction Status Date / Time No Known Allergies Allergy Verified 07/02/24 13:08 Review of Systems 2 General: Reports: 10 or more systems reviewed and unremarkable except in HPI and below PFSH ED 2 PFSH: Family History (Updated 11/09/23 @ 13:33 by Natalia Ho LPN) Brother No problems noted. Father Diabetes Heart disease Sister Diabetes Heart disease Mother Hypertension Denies family history of Colon cancer Ovarian cancer Prostate cancer Breast cancer Uterine cancer Thyroid disease Stroke Physical Exam 2 Const: COMMON NORMALS: no acute distress, patient oriented x3 and alert G ENERAL APPEARANCE: cooperative ORIENTATION/CONSCIOUSNESS: Yes awake, Yes oriented to person, Yes oriented to place and Yes oriented to time Neck/C-Spine: COMMON NORMALS: full ROM GENERAL: Yes normal visual inspection CERVICAL SPINE: Yes cervical ROM normal, No Cervical spine tenderness, No step off deformity and No Paracervical muscle tenderness Lymph: LYMPHATIC: no lymphadenopathy noted Chest: COMMONS NORMALS: normal inspection of the chest Breast/axilla inspection: Yes no chest deformity, asymmetry, normal contours, no nodules, masses, tenderness Resp: COMMON NORMALS: normal respiratory effort, No retractions, No use of accessory muscles and clear to auscultation bilaterally EFFORT & INSPECTION: Yes able to speak in complete sentences and Yes symmetric chest movement A USCULTATION: clear to auscultation bilaterally Cardio: COMMON NORMALS: regular rate, regular rhythm and Peripheral pulses 2+ throughout RATE: regular rate RHYTHM: regular rhythm PERIPHERAL PULSES: Peripheral pulses 2+ throughout GI: COMMON NORMALS: Normal to inspection, nondistended, normoactive bowel sounds present, Soft to palpation, non-tender and No hepatosplenomegaly present INSPECTION: Yes normal to inspection AUSCULTATION: Yes normoactive bowel sounds PALPATION: Yes Soft to palpation and Yes No hepatosplenomegaly present RECTAL EXAM: deferred Back/Pelvis: OTHER: Tenderness to palpation along the lumbar spine. Patient reports this is chronic in nature. She reports she has pain in the posterior aspect of the legs in the morning but this improves as the day wears on. Extremity: NARRATIVE EXTREMITY EXAM: Right lower extremity: Patient is still closed but she has shortening of the right lower extremity. No rotation. She is tender to palpation in the groin. No tenderness over the greater trochanter. She has tenderness in her lumbar spine but not specifically her sacrum or pelvis. Patient has no range of motion of the right lower extremity secondary to pain. She is able to dorsiflex plantarflex her foot Able dorsiflex great toe Sensation intact to light touch at medial, lateral, dorsal, plantar surface of the foot and first webspace DP pulses palpable and cap refills less than 3 seconds Neuro: COMMON NORMALS: patient oriented x3 SENSORIUM/ORIENTATION: Yes alert, Yes oriented to person, Yes oriented to place and Yes oriented to time CRANIAL NERVES: Yes CN normal except as noted Psych: COMMON NORMALS: mental status grossly normal, Normal thought process present, cooperative, activity/motor behavior normal, denies homicidal ideation and denies suicidal ideation THOUGHT PROCESS: Normal thought process present Skin: COMMON NORMALS: no rashes or lesions noted, no wounds and turgor normal GENERAL SKIN EXAM: no rashes or lesions noted and turgor normal Course 2 Vital Signs: Vital signs: Vital Signs Temperature 98 F 07/02/24 13:08 Pulse Rate 71 07/02/24 16:02 Respiratory Rate 16 07/02/24 13:51 Blood Pressure 144/71 07/02/24 16:02 Pulse Oximetry 95 07/02/24 16:02 Oxygen Delivery Me thod Room Air 07/02/24 15:14 MDM - Fall Lab Data 07/02/24 13:57 07/02/24 13:57 Radiology Impressions Hip/Pelvis X-Ray 07/02/24 13:16 IMPRESSION: Minimally displaced fracture right superior pubic ramus with possible nondisplaced fracture right inferior pubic ramus. Chest X-Ray 07/02/24 13:24 IMPRESSION: Hazy left basilar infiltrate. Pelvis CT 07/02/24 13:58 IMPRESSION: 1. Right-sided inferior and superior pubic rami fractures. 2. Nondisplaced right sacral ala fractures. 3. This combination of fractures constitutes a Malgaigne fracture. Laboratory Results WBC 6.24 10^3/uL (3.29-11.43) 07/02/24 13:57 RBC 3.79 10^6/uL (3.85-5.65) L 07/02/24 13:57 Hgb 12.50 g/dL (11.27-16.99) 07/02/24 13:57 Hct 37.7 % (36-47) 07/02/24 13:57 MCV 99.5 fl (85-98) H 07/02/24 13:57 MCH 33.0 pg (27-33) 07/02/24 13:57 MCHC 33.2 g/dL (30-55) 07/02/24 13:57 RDW 13.3 % (12.1-15.1) 07/02/24 13:57 Plt Count 213 10^3/cmm (157-399) 07/02/24 13:57 MPV 8.9 fL (7.4-10.4) 07/02/24 13:57 Neut % (Auto) 76.9 % 07/02/24 13:57 Lymph % (Auto) 15.7 % 07/02/24 13:57 Kershaw % (Auto) 5.9 % 07/02/24 13:57 Eos % (Auto) 0.2 % 07/02/24 13:57 Baso % (Auto) 0.8 % 07/02/24 13:57 Neut # (Auto) 4.80 10^3/uL (1.8-7.7) 07/02/24 13:57 Lymph # (Auto) 1.0 10^3/uL (0.8-4.8) 07/02/24 13:57 [place]haw # (Auto) 0.4 10^3/uL (0.2-0.9) 07/02/24 13:57 Eos # (Auto) 0.0 10^3/uL (0.0-0.8) 07/02/24 13:57 Baso # (Auto) 0.1 10^3/uL (0.0-0.1) 07/02/24 13:57 Nucleated RBC % (auto) 0 % 07/02/24 13:57 Nucleated RBCs # 0.0 /100WBC 07/02/24 13:57 PT 13.70 SECONDS (12.1-14.9) 07/02/24 13:57 INR 0.98 (0.8-1.2) 07/02/24 13:57 Sodium 134 mmol/L (136-145) L 07/02/24 13:57 Potassium 4.4 mmol/L (3.5-5.1) 07/02/24 13:57 Chloride 100 mmol/L (98-107) 07/02/24 13:57 Carbon Dioxide 26 mmol/L (22-29) 07/02/24 13:57 Anion Gap 12.4 (5-19) 07/02/24 13:57 BUN 14 mg/dL (8-23) 07/02/24 13:57 Creatinine 0.6 mg/dL (0.5-0.9) 07/02/24 13:57 GFR Calculation Not Reportable 07/02/24 13:57 Glucose 90 mg/dL (65-115) 07/02/24 13:57 Calculated Osmolality 278 mOsm/kg (285-295) L 07/02/24 13:57 Calcium 9.1 mg/dL (8.5-10.5) 07/02/24 13:57 Total Bilirubin 0.4 mg/dL (0.15-1.2) 07/02/24 13:57 AST 28 U/L (0-32) 07/02/24 13:57 ALT 15 U/L (0-33) 07/02/24 13:57 Alkaline Phosphatase 63 U/L (35-105) 07/02/24 13:57 Total Protein 6.6 g/dL (6.6-8.7) 07/02/24 13:57 Albumin 3.9 g/dL (3.5-5.2) 07/02/24 13:57 Globulin 2.7 g/dL (1.3-4.6) 07/02/24 13:57 Discharge Plan Discharge Patient Disposition: Home Clinical Impression: Closed Malgaigne fracture of pelvis, Fall Condition: Stable Prescriptions: New hydrocodone-acetaminophen 5-325 mg tablet 1 tab PO Q8H PRN (Reason: pain) Qty: 20 0RF Rx Instructions: Take 1/2 to 1 tab every 8 hours as needed for pain polyethylene glycol 3350 [Miralax] 17 gram/dose powder 17 g PO DAILY Qty: 510 0RF Rx Instructions: Take 1 scoop daily while taking pain medications. (DME) DME: Walker Unit See Rx Instructions .Route Qty: 1 0RF Rx Instructions: As directed No Action acetaminophen 325 mg capsule 650 mg PO QID PRN (Reason: Fever Or Pain) ibuprofen [Advil] 200 mg Tablet 400 mg PO Q6H PRN (Reason: Fever Or Pain) Discharge Orders: Discharge ED (Routine); Ordered 07/02/24 Ordered By: Francia Frye Other Ambulatory Orders: DME: [facility] (Order) Location: None Selected Ordered By: Francia Frye Referrals: Amari Rubio DO [Physician] - (Please call for a follow-up ointment with Dr. Rubio with orthopedics.) Alejandro Roman DO [Primary Care Provider] - Discharge Activity: Limit activity as instructed Patient Instructions: Opioid Safety, Pain Management Activity Restrictions/Additional Instructions: You are able to weight-bear as tolerated. You can touchdown or bear weight fully if pain allows. You may need to use a walker or wheelchair initially. Please contact your PCP as soon as possible for possible home health, physical therapy or other aids. Thank you for choosing [facility] for your healthcare needs today. Please realize this is an emergency room and that we are providing you with a medical screening exam and this may not be complete and all inclusive of all the testing and or work up that you may need to determine your ailment or severity of your illness. You have been screened and evaluated and felt safe for discharge. Health conditions do change or evolve sometimes and as such it is important that you follow up with your Primary Doctor to be re checked, 3-5 days is a general good time frame for follow up. You are always welcome to return to the ED for re assessment if your symptoms are worsening or you have new concerns Print Language: Greenlandic Coding Level of Care Code ED Inspector Tester Sorter for Brooke Patino
--- NOTE | 2024-07-02 13:24 | XRR_ITS ---
PROCEDURE INFORMATION: Exam: XR Chest Exam date and time: 07/02/2024 1:42 PM Age: 89 years old Clinical indication: Pre-operative exam; Respiratory screening exam; SOB; Cardiac clearance for surgery; Right hip/pelvic pain post fall TECHNIQUE: Imaging protocol: Radiologic exam of the chest. Views: 1 view. COMPARISON: CR (CHEST, ) 08/10/2020 9:26 PM FINDINGS: Lungs: Hazy left basilar infiltrate. Calcified granuloma left upper lung zone. Pleural spaces: Unremarkable. No pleural effusion. No pneumothorax. Heart/Mediastinum: Unremarkable. No cardiomegaly. Bones/joints: Osteopenia. [place] leftward thoracolumbar curvature. XR/XR chest 1V portable [id number] IMPRESSION: Hazy left basilar infiltrate.
--- NOTE | 2024-07-02 13:31 | ECG_ITS ---
[facility] Test Date: 2024-07-02 Pat Name: Arlin Carrillo Department: Room: Gender: Female [employer] Consultant: : 1935 Requested By: Francia Jerry Order Number: [id number] MD: WERNER ARAGON Measurements Intervals Alexis Rate: 75 P: 52 IA: 159 QRS: -60 QRSD: 93 T: 13 QT: 360 QTc: 404 Interpretive Statements SINUS RHYTHM LOW QRS VOLTAGE IN PRECORDIAL LEADS [QRS DEFLECTION < 1.0 mV IN CHEST LEADS] PATTERN CONSISTENT WITH PULMONARY DISEASE INCOMPLETE RIGHT BUNDLE BRANCH BLOCK [90+ ms QRS DURATION, TERMINAL R IN V1/V2, 40+ ms S IN I/aVL/V4/V5/V6] LEFT ANTERIOR FASCICULAR BLOCK [QRS AXIS <= -45, QR IN I, RS IN II] SEPTAL MYOCARDIAL INFARCTION , OF INDETERMINATE AGE [40+ ms Q WAVE IN V1/V2] Compared to ECG 03/12/2020 11:03:28 Low QRS voltage now present Incomplete right bundle-branch block now present Left anterior fascicular block now present Myocardial infarct finding still present Electronically Signed On 07-04-2024 18:11:14 CDT by WERNER ARAGON [email or web address]
[2024-07-02] MEDS: ondansetron 2 mg/ML SDV 2 mL 4 MG IVP (13:50)
[2024-07-02 13:51] VITALS: RESP 16; O2SAT 96
[2024-07-02] MEDS: morphine 4 mg/mL SDV 1 mL 2 MG IVP (13:51)
[2024-07-02 13:54] VITALS: PULSE 73; O2SAT 96
--- NOTE | 2024-07-02 13:58 | CTR_ITS ---
PROCEDURE INFORMATION: Exam: CT Pelvis Without Contrast, Skeleton Exam date and time: 07/02/2024 2:14 PM Age: 89 years old Clinical indication: Injury or trauma; Fall; Blunt trauma (contusions or hematomas); Right; Groin; Additional info: Traumatic pelvic pain TECHNIQUE: Imaging protocol: Computed tomography of the pelvis without contrast. Exam focused on the skeleton. Radiation optimization: All CT scans at this facility use at least one of these dose optimization techniques: automated exposure control; mA and/or kV adjustment per patient size (includes targeted exams where dose is matched to clinical indication); or iterative reconstruction. COMPARISON: CR (PELVIS, ) 07/02/2024 1:37 PM RADIATION DOSE METRICS: Total DLP (mGy-cm): 240.81 FINDINGS: Bones/joints: Right-sided inferior and superior pubic rami fractures. Nondisplaced right sacral ala fracture. Soft tissues: Unremarkable. CT/CT pelvis wo con [id number] IMPRESSION: 1. Right-sided inferior and superior pubic rami fractures. 2. Nondisplaced right sacral ala fractures. 3. This combination of fractures constitutes a Malgaigne fracture.
[2024-07-02 14:13] LABS: Basophils # 0.1 10^3/uL (0.0-0.1); Basophils % 0.8 %; Eosinophils % 0.2 %; Hematocrit 37.7 % (36-47); Lymphocytes % 15.7 %; Mean Corpuscular HGB Conc 33.2 g/dL (30-55); Mean Corpuscular Volume 99.5 fl (85-98); Mean Platelet Volume 8.9 fL (7.4-10.4); Monocytes # 0.4 10^3/uL (0.2-0.9); Monocytes % 5.9 %; Neutrophils % 76.9 %; Nucleated Red Blood Cells % 0 %; Platelet Count 213 10^3/cmm (157-399); Red Blood Count 3.79 10^6/uL (3.85-5.65); Red Cell Distribution Width 13.3 % (12.1-15.1); White Blood Count 6.24 10^3/uL (3.29-11.43)
[2024-07-02 14:28] LABS: INR 0.98 (0.8-1.2)
[2024-07-02 14:37] LABS: Alanine Aminotransferase 15 U/L (0-33); Albumin Level 3.9 g/dL (3.5-5.2); Alkaline Phosphatase 63 U/L (35-105); Anion Gap 12.4 (5-19); Aspartate Amino Transferase 28 U/L (0-32); Blood Urea Nitrogen 14 mg/dL (8-23); Calcium 9.1 mg/dL (8.5-10.5); Carbon Dioxide 26 mmol/L (22-29); Chloride 100 mmol/L (98-107); Creatinine Clr Calc Pharmacy 37.6857; Globulin 2.7 g/dL (1.3-4.6); Glucose 90 mg/dL (65-115); Osmolality Calculated 278 mOsm/kg (285-295); Potassium 4.4 mmol/L (3.5-5.1); Sodium 134 mmol/L (136-145); Total Bilirubin 0.4 mg/dL (0.15-1.2); Total Protein 6.6 g/dL (6.6-8.7)
[2024-07-02 15:14] VITALS: BP 121/58; PULSE 71; O2SAT 95
[2024-07-02 16:02] VITALS: BP 144/71; PULSE 71; O2SAT 95
== END 2024-07-02 16:03 | disposition home or self-care (01) ==
PROVIDERS: Nurse Practitioner; Emergency Provider Emergency Medicine; PCP Electrodiagnostic Medicine
DX: S32.89XA Fracture of other parts of pelvis, initial encounter for closed fracture (principal); W19.XXXA Unspecified fall, initial encounter
CPT/HCPCS: 71045; 72192; 73502; 80053; 85025; 85610; 93005; 96374; 96375; 99285; J2270; J2405

== ENCOUNTER → 2024-07-07 13:30 | Outpatient (BNVA) | payer MEDICARE, SELFPAY | PROVIDERS: PCP Electrodiagnostic Medicine; Visit Provider Orthopaedic Surgery | DX: S32.811A Multiple fractures of pelvis with unstable disruption of pelvic ring, initial encounter for closed fracture (principal); X58.XXXA Exposure to other specified factors, initial encounter | CPT/HCPCS: 72170; 99203 ==

== ENCOUNTER → 2024-07-28 13:32 | Outpatient (BNVA) | payer MEDICARE, SELFPAY | PROVIDERS: PCP Electrodiagnostic Medicine; Visit Provider Orthopaedic Surgery | DX: S32.811A Multiple fractures of pelvis with unstable disruption of pelvic ring, initial encounter for closed fracture (principal); X58.XXXA Exposure to other specified factors, initial encounter | CPT/HCPCS: 72190; 99213 ==

== ENCOUNTER → 2024-09-01 13:22 | Outpatient (BNVA) | payer MEDICARE, SELFPAY | PROVIDERS: PCP Electrodiagnostic Medicine; Visit Provider Orthopaedic Surgery | DX: S32.811A Multiple fractures of pelvis with unstable disruption of pelvic ring, initial encounter for closed fracture (principal); X58.XXXA Exposure to other specified factors, initial encounter | CPT/HCPCS: 72190; 99213 ==